=== PATIENT | male | born 1995 ===

== ENCOUNTER 2024-02-18 21:14 | Emergency (ER) | payer SELFPAY ==
[~2024-02-18] VITALS: Ht 190.5 cm; Wt 121.6 kg
--- NOTE | 2024-02-18 21:33 | NUR ---
AND 3 OFFICERS AT BEDSIDE.
--- NOTE | 2024-02-18 21:36 | NUR ---
SEIZURE PRECAUTIONS IN PLACE.
[2024-02-18 21:38] LABS: BASOPHILS # (AUTO) 0.15 K/uL (0.00-0.20); BASOPHILS % (AUTO) 1.7 % (0.0-5.0); EOSINOPHILS # (AUTO) 0.45 K/uL (0.00-0.70); EOSINOPHILS % (AUTO) 5.1 % (0.0-8.0); HEMATOCRIT 44.1 % (42-54); IMMATURE GRANULOCYTE ABSOLUTE 0.03 K/uL (0-1); LYMPHOCYTES # (AUTO) 3.2 K/uL (1.0-4.8); LYMPHOCYTES % (AUTO) 36.4 % (21.0-51.0); MEAN CORPUSCULAR HEMOGLOBIN 29.2 pg (27.0-33.0); MEAN CORPUSCULAR VOLUME 85.8 fL (79-99); MONOCYTES # (AUTO) 0.7 K/uL (0.1-1.0); MONOCYTES % (AUTO) 7.3 % (3.0-13.0); NEUTROPHILS # (AUTO) 4.4 K/uL (1.8-7.7); NEUTROPHILS % (AUTO) 49.2 % (40.0-77.0); PLATELET COUNT (AUTO) 276 K/uL (130-400); RED BLOOD CELL COUNT(AUTO) 5.14 MIL/uL (4.50-6.20); RED CELL DISTRIBUTION WIDTH 11.9 % (11.0-15.5); WHITE BLOOD COUNT (AUTO) 8.9 K/uL (4.8-10.8)
[2024-02-18 21:45] LABS: CREATININE 1.1 mg/dL (0.5-1.3); POTASSIUM 4.1 mmol/L (3.5-5.1)
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
[2024-02-18] MEDS: 0.9%NACL 1000ML 1,000 ML IV ONE (22:12)
[2024-02-18] MEDS: ketOROlac 15MG/ML VIAL (15MG/ML) IV ONE (22:12)
--- NOTE | 2024-02-18 22:12 | NUR ---
PHARMACY TO SEND [facility].
[2024-02-18] MEDS: cefTRIAXone 1G VIAL IVPB SCH (22:18)
[2024-02-18] MEDS: leveTIRACEtam 500 MG/5 ML SD V 1,500 MG in 0.9%NACL 100ML 100 ML IV SCH (22:18)
[2024-02-18] MEDS: Solu-medROL 125MG VIAL IVP ONE (22:18)
--- NOTE | 2024-02-18 22:37 | NUR ---
[facility] MANA[facility] CARE NOTIFIED OF NEED TO ADMIT PATIENT, PATIENT IS STABLE FOR TRANSFER TO [facility], NEED ENT SPECIALTY. SPOKE WITH [facility], WILL CHECK FOR BED AVAILABILITY AND CALL BACK
--- NOTE | 2024-02-18 22:44 | NUR ---
LEFT EAR DRAINAGE CX SENT AT THIS TIME.
--- NOTE | 2024-02-18 23:20 | NUR ---
CALL BACK FROM [facility] AT [facility], NO BEDS AVAILABLE FOR PATIENT. PATIENT MAY BE ADMITTED, TRANSFERRED TO ANOTHER LOCAL FACILITY, OR MAY REMAIN IN ER TO WAIT FOR A BED TO OPEN UP IN [place]. PER ER MD, PATIENT WILL TRANSFER TO ANOTHER LOCAL FACILITY, [facility] ASKING FOR RETURN CALL WHEN ACCEPTING FACILITY IS OBTAINED.
--- NOTE | 2024-02-18 23:28 | NUR ---
TRANSFER TRANSFER REQUEST INITIATED WITH [facility] AT THIS TIME.
--- NOTE | 2024-02-19 01:12 | NUR ---
SPOKE WITH CORI AT [facility] MANAGED TO CARE, INFORMED HER OF PATIENT ACCEPTANCE AT [facility].
--- NOTE | 2024-02-19 01:38 | NUR ---
REPORT CALLED TO [facility] ROOM 1531 NURSE JOSE BURNS.
[2024-02-19 02:41] VITALS: BP 121/71; PULSE 84; RESP 18; TEMP 98.4; O2SAT 98
--- NOTE | 2024-02-19 02:42 | NUR ---
EMS PRESENT TO TRANSPORT PATIENT.
== END 2024-02-19 02:45 | disposition short-term general hospital (02) ==
LOC: EDH 21:14 → EEVIPCON 21:14 → EDH 02-19 02:45
DX: G40.909 Epilepsy, unspecified, not intractable, without status epilepticus (principal); R51.9 Headache, unspecified; I10 Essential (primary) hypertension; H66.92 Otitis media, unspecified, left ear; H70.92 Unspecified mastoiditis, left ear; Z88.0 Allergy status to penicillin; Z88.2 Allergy status to sulfonamides
CPT/HCPCS: 99285; 96365; 70450; 96375; 96366; 80048; 85025; 87086 ×2; 87186 ×2; 36415; 96368; 80177; 87070; J7030; J2919; J0696; J1885; J1953

== ENCOUNTER 2024-03-01 22:29 | Emergency (ER) | payer OTHER ==
[~2024-03-01] VITALS: Ht 190.5 cm; Wt 121.6 kg
[2024-03-01 22:50] LABS: BASOPHILS # (AUTO) 0.15 K/uL (0.00-0.20); BASOPHILS % (AUTO) 2.1 % (0.0-5.0); EOSINOPHILS # (AUTO) 0.38 K/uL (0.00-0.70); EOSINOPHILS % (AUTO) 5.4 % (0.0-8.0); HEMATOCRIT 42.6 % (42-54); IMMATURE GRANULOCYTE ABSOLUTE 0.01 K/uL (0-1); LYMPHOCYTES # (AUTO) 3.1 K/uL (1.0-4.8); LYMPHOCYTES % (AUTO) 43.4 % (21.0-51.0); MEAN CORPUSCULAR HEMOGLOBIN 29.4 pg (27.0-33.0); MEAN CORPUSCULAR HGB CONC 34.7 g/dL (32.0-36.0); MEAN CORPUSCULAR VOLUME 84.7 fL (79-99); MONOCYTES # (AUTO) 0.5 K/uL (0.1-1.0); MONOCYTES % (AUTO) 6.9 % (3.0-13.0); NEUTROPHILS % (AUTO) 42.1 % (40.0-77.0); PLATELET COUNT (AUTO) 276 K/uL (130-400); RED BLOOD CELL COUNT(AUTO) 5.03 MIL/uL (4.50-6.20); RED CELL DISTRIBUTION WIDTH 11.9 % (11.0-15.5); WHITE BLOOD COUNT (AUTO) 7.1 K/uL (4.8-10.8)
[2024-03-01] MEDS: leveTIRACEtam 500 MG/5 ML SD VIAL IV STA (22:50)
--- NOTE | 2024-03-01 22:59 | ERN ---
ED Note History of Present Illness Stated Complaint: SEIZURE Chief Complaint: Seizure Time Seen by MD: 22:30 Time Seen by Midlevel: 22:33 Dictation: 28-year-old male coming in via EMS [facility] for seizure. Patient was in bed when he had a seizure in already has a history of seizures. Patient reports taking Keppra, Dilantin, and Tegretol. Patient states he is compliant with the medication. Denies any drug use or any other complaints. Patient states he is currently under medication for left ear infection. Allergies: Coded Allergies: Penicillins (Unverified Allergy, Unknown, 02/18/24) Sulfa (Sulfonamide Antibiotics) (Unverified Allergy, Unknown, 02/18/24) mushroom (Unverified Allergy, Unknown, ANAPHYLAXIS, 03/01/24) Past Medical History Past Medical History: Hypertension, Seizure Surgical History: Other Surgical History Other: R ROTATOR CUFF REPAIR Family History: Negative Social History: Negative Review of System Dictation Constitutional: Negative for fever,chills, and weight loss Eyes: Negative for injury, pain,redness, and discharge ENT: Negative for injury,pain or swelling Cardiovascular: Negative for chest pain, palpitations, and edema Respiratory: Negative for shortness of breath, cough, and wheezing, Abdomen/GI: Negative for abdominal pain, nausea, vomiting, diarrhea, and constipation Back: Negative for injury and pain : Negative for injury, bleeding and discharge MS/Extremity: Negative for injury and deformity Skin: Negative for rash, and discoloration Neuro: Negative for headache, weakness, numbness, tingling, and seizure Psych: Negative for suicide ideation, homicidal ideation, and hallucinations Review of Systems: was completed Initial Vital Sign VS Vital Signs Date Time Temp Pulse Resp B/P (MAP) Pulse Ox O2 Delivery O2 Flow Rate FiO2 03/01/24 22:30 99.7 100 18 118/69 98 Room Air* 0 21 Physical Exam Dictation General: awake, alert, NAD Head/Face: Normocephalic, atraumatic Eyes: PERRL, EOMI, vision at baseline ENT: oral cavity clear, TMs clear, no signs of infection Neck: Trachea midline, supple, no nuchal rigidity Cardiovascular: RRR, normal S1/S2, No MRGs, no JVD Respiratory: CTAB, no respiratory distress, No rales or wheezes Abdomen: Soft, non-tender, non-distended, normal bowel sounds, no guarding or rebound. Skin: Warm, dry, normal turgor, no rash MS/Extremity: Pulses equal, no cyanosis, neurovascular intact, FROM Neuro: COAx4, GCS 15, strength 5/5, CN 2-12 intact, normal cerebellar exam, normal gait, Psych: Normal behavior, mood, and affect normal Results (Laboratory/Radiology) Laboratory/Radiology Laboratory Tests Test 03/01/24 22:13 03/01/24 22:43 White Blood Count 7.1 K/uL (4.8-10.8) Red Blood Count 5.03 MIL/uL (4.50-6.20) Hemoglobin 14.8 g/dL (14.0-18.0) Hematocrit 42.6 % (42-54) Mean Corpuscular Volume 84.7 fL (79-99) Mean Corpuscular Hemoglobin 29.4 pg (27.0-33.0) Mean Corpuscular Hemoglobin Concent 34.7 g/dL (32.0-36.0) Red Cell Distribution Width 11.9 % (11.0-15.5) Platelet Count 276 K/uL (130-400) Mean Platelet Volume 10.2 fL (7.5-10.5) Immature Granulocyte % (Auto) 0.1 % (0-1) Neutrophils (%) (Auto) 42.1 % (40.0-77.0) Lymphocytes (%) (Auto) 43.4 % (21.0-51.0) Monocytes (%) (Auto) 6.9 % (3.0-13.0) Eosinophils (%) (Auto) 5.4 % (0.0-8.0) Basophils (%) (Auto) 2.1 % (0.0-5.0) Neutrophils # (Auto) 3.0 K/uL (1.8-7.7) Lymphocytes # (Auto) 3.1 K/uL (1.0-4.8) Monocytes # (Auto) 0.5 K/uL (0.1-1.0) Eosinophils # (Auto) 0.38 K/uL (0.00-0.70) Basophils # (Auto) 0.15 K/uL (0.00-0.20) Absolute Immature Granulocyte (auto 0.01 K/uL (0-1) Nucleated Red Blood Cells 0.0 % (0.0-0.19) Sodium Level 144 mmol/L (136-145) Potassium Level 3.8 mmol/L (3.5-5.1) Chloride Level 108 mmol/L (101-111) Carbon Dioxide Level 29 mmol/L (21-32) Blood Urea Nitrogen 12 mg/dL (7-18) Creatinine 1.0 mg/dL (0.5-1.3) Glomerular Filtration Rate Calc 106 mL/min (>90) Random Glucose 88 mg/dL (70-105) Total Calcium 9.2 mg/dL (8.5-10.1) Phenytoin (Dilantin) Level 6.5 mcg/mL (10.0-20.0) L Labs Reviewed?: Yes EKG Comment: Date:03/01/24 Time:2244 Ventricular rate:96 [place] interval:185 QRS duration:27 QT/QTc:323/408 EKG interpretation: Sinus rhythm Reviewed by ED Attending no STEMI interpreted by ER MD ED Course ED Course Orders Procedure Category Date Status Time Cbc With Differential LAB 03/01/24 Complete 22:40 Basic Metabolic Panel LAB 03/01/24 Complete 22:40 Urinalysis Profile LAB 03/01/24 Logged 22:40 Drug Screen Urine LAB 03/01/24 Logged 22:40 Levetiracetam 500 PHA 03/01/24 Complete Mg/5 M[address] S[address] V (Keppra 5 22:40 12 Lead Ekg Tracing- EKG 03/01/24 Logged Technical 22:46 Phenytoin (Alexander) In LAB 03/02/24 Complete House 00:16 Keppra LAB 03/02/24 In Process (Levetiracetam) Level 00:16 Acetaminophen 500mg PHA 03/02/24 Complete Tab (Tylenol 500mg T 00:39 Current Medications Medications (Trade) Dose Ordered Sig/Jair Route PRN Reason Start Time Stop Time Status Last Admin Dose Admin Acetaminophen (TYLenol 500MG TAB) 1,000 mg ONCE STAT PO 03/02/24 00:39 03/02/24 00:41 DC Levetiracetam (kepPRA 500 MG/5 ML SD VIAL) 1,000 mg ONCE STAT IV 03/01/24 22:40 03/01/24 22:42 DC 03/01/24 22:50 Vital Signs Date Time Temp Pulse Resp B/P (MAP) Pulse Ox O2 Delivery O2 Flow Rate FiO2 03/02/24 00:40 98.2 88 18 138/72 100 Room Air* 0 21 03/01/24 22:31 99.7 100 18 118/69 98 Room Air 0 03/01/24 22:30 99.7 100 18 118/69 98 Room Air* 0 21 Medical Decision Making MDM MDM: 28-year-old male coming in via EMS from a [facility] for seizure. Patient was in bed when he had a seizure in already has a history of seizures. Patient reports taking Keppra, Dilantin, and Tegretol. Patient states he is compliant with the medication. Denies any drug use or any other complaints. Patient states he is currently under medication for left ear infection. Blood work is unremarkable. Added on levels for Dilantin and Keppra however patient will be discharged no need to wait for results. Gave 1 g of Keppra in ER. Educated patient on findings, educated patient to continue with his ear drops and p.o. meds that are given to him in the [facility]. Patient's vital signs are stable, no signs of sepsis. Differential diagnosis: Noncompliance, electrolyte abnormality, dehydration, drug use Rationale: Tests considered and ordered secondary to shared decision making include: Previous outside records reviewed: Old ER visits. Risk of complication and/or morbidity or mortality of patient management: None Medications-Per medication reconciliation Need for hospitalization: Patient does not meet criteria for hospitalization. Need for emergency major/minor surgery: No There are no social concerns with this patient. Prescription drug management Prescriptions will include symptomatic care Patient's prior external medical records from other ER visits were reviewed by me as indicated. Prior testing and results from previous visits were reviewed. Prior tests were taken into account with medical decision making and resource utilization, independent historian/historians were used to obtain complete medical history. I independently interpreted the test that were performed, results were reviewed by me and considered findings on radiology if ordered. Medical management and examination interpretation discussions were had by me with other qualified healthcare professionals as indicated for the patient's care. DX & DISP Disposition: Discharge Departure Impression: Primary Impression: Seizure Condition: Stable Additional Instructions: continue to take your medications for your ear infection/mastoiditis. Referrals: SELF,REFERRAL (PCP) Time of Disposition: 00:48 I have reviewed the case, and I agree with, Diagnosis and Plan YANG SEGAL NP Mar 01, 2024 22:59
[2024-03-01 23:07] LABS: POTASSIUM 3.8 mmol/L (3.5-5.1)
[2024-03-02] MEDS ORDERED: acetaMINOPHEN 500 MG TABLET PO STA (00:39)
[2024-03-02 00:40] VITALS: BP 138/72; PULSE 88; RESP 18; TEMP 98.3; O2SAT 100
--- NOTE | 2024-03-02 05:48 | EKG ---
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
== END 2024-03-02 00:59 ==
LOC: EDH 22:29 → EDBD 22:29 → EDH 03-02 00:59
DX: R56.9 Unspecified convulsions (principal); I10 Essential (primary) hypertension; Z88.0 Allergy status to penicillin; Z88.2 Allergy status to sulfonamides; Z98.890 Other specified postprocedural states
CPT/HCPCS: 99284; 96365; 80185; 80048; 85025; 36415; 93005; 80177; J1953